=== PATIENT | male | born 1980 | race Caucasian/White ===

== ENCOUNTER 2018-04-28 12:23 | Emergency (ER) | payer OTHER ==
[~2018-04-28] VITALS: Ht 188 cm; Wt 105.6 kg
[2018-04-28 12:28] VITALS: BP 148/94
[2018-04-28] MEDS ORDERED: PERCOCET 5/31 TABLET PO (14:10)
[2018-04-28] MEDS ORDERED: MOTRIN800 MG PO (14:10)
== END 2018-04-28 14:48 | disposition home or self-care (01) ==
LOC: EME 12:23
DX: S46.211A Strain of muscle, fascia and tendon of other parts of biceps, right arm, initial encounter (principal); X50.0XXA Overexertion from strenuous movement or load, initial encounter
CPT/HCPCS: 99281; 99284; J1885